=== PATIENT | female | born 1985 | race Caucasian/White ===

== ENCOUNTER 2016-09-14 18:25 | Emergency (ER) | payer OTHER ==
[~2016-09-14] VITALS: Ht 154.9 cm; Wt 63.5 kg
--- NOTE | 2016-09-14 19:37 | Emergency Room Report ---
History of Present Illness Time Seen by [id number] Presenting Problem in Triage Pt arrived:Wheelchair Presenting Problem:C/O SHARP/STABBING LOWER BACK PAIN. PT STATES PAIN BEGAN SUDDENLY WHILE AT WORK AND "MY BACK WENT OUT". PT STATES SHE DID LIFT A PT A COUPLE DAYS AGO AT WORK WHICH CAUSED PAIN AFTERWARD BUT PAIN WAS RELIEVED. PT STATES HAS HX OF PROTRUDING DISC IN HER BACK PT STATES WHEN SHE BEARS WAIT PAIN RADIATES DOWN HER R LEG. Onset of symptoms date/time:09/14/1607/21/1730 or onset unknown for: Treatment Prior to Arrival: CONSULTING IT ARCHITECT Provided by: Sepsis Risk Assessment: Temp: 98.1 B/P: 136/89 MAP: 104 Pulse: 106 Resp: 18 Recent fever? N Clinical Suspician of Infection? N Mental Status: 1 - Regular (Normal Baseline) Sepsis Risk:Low Sepsis Risk Have you (or family members/close friends) recently traveled outside the [place]? N If Yes, where/when: Have you had exposure to infectious disease within the past month? N TB? Other? Specify: Comment The patient says that she has had a slightly sore lower back for a couple of days. She did some lifting at work today and then afterwards developed severe pain in her RIGHT buttock area that goes down her RIGHT leg when she stands and bears weight. She has some tingling or numbness in her RIGHT buttock or hip area when she stands, but no other numbness or weakness. No groin numbness. No loss of bowel or bladder control. No numbness down the leg or in the foot. She does have a prior history of a bulging disc when she was 19 years old. She was treated with physical therapy. No surgery or epidural injections. He had just returned to work last week from a section after having been off work for a couple of months. ALLERGIES Coded Allergies: No Known Allergies (09/14/16) History Medical History General CAD? No Angina: No NV: No Hypertension? No Hyperlipidemia? No CHF? No DVT? No PE? No COPD? No Asthma? No Anemia? No GERD? No Gastric ulcers? No GI Bleed? No Hernia? No Thyroid Problems? No Hypothyroidism? No CVA? No Seizures? No Diabetes? No Renal Insuffiency? No End Stage Renal Disease? No UTI? No Stones? No GB Disease: No Nephritic Syndrome? No Asplenia? No Hepatitis? No Sickle Cell Disease? No Arthritis? No Migraines? No Cataracts? No Glaucoma? No MRSA? No HIV? No TB? No Anxiety? No Depression? No Cancer? No More? No Immunization Hx DT/Tetanus Unknown Surgical Hx Previous Surgery?Y HYSTERECTOMY X3 TONSILS [employer] Hx LMP 2 Months Ago Social History Smoking Hx Smoker: Never Smoker Tobacco: No Alcohol Alcohol: No Review of Systems All Other Systems Reviewed and Negative Constitutional denies fever Musculoskeletal back pain Psychiatric/Neurological tingling, denies weakness Physical Exam Vital Signs Vital Signs Date Time Temp Pulse Resp B/P Pulse O2 O2 Flow FiO2 Ox Delivery Rate 09/14 2010 18 09/14 2009 96 16 142/83 97 09/14 1840 18 09/14 1827 98.1 106 18 136/89 100 - WBC >12,000 or <4,000 or 10% bands? 2 or more SIRS Criteria Met? B/P:136/89 MAP:104 Creatinine >2.0? UA output<0.5ml/kg/hr for 2 hrs? Platelet count >100,000? Lactate >2.0mmol/1? INR >1.2 or PTT > than 60 sec? Evidence of Organ Dysfunction? Provider documented clinical suspician of infection? N Sepsis Criteria Count: 1 Sepsis Risk: Low Sepsis Risk General Appearance normal appearance Respiratory Status No: respiratory distress. Cardiovascular regular rate/rhythm, normal peripheral pulses Back tenderness of RIGHT sacroiliac joint and buttock area including sciatic notch. Increased pain in the RIGHT lower back with movement of the lower extremities, particularly the LEFT. Strength 5 Lower Ext (L), 5 Lower Ext (R) Neurologic alert, no motor/sensory deficits Reflexes Comment 2+ knee jerk and ankle jerk bilaterally symmetric. Medical Decision Making LABS/Meds/Orders Pt receiving controlled substance in ED? Yes Rolo was queried for this patient? Yes Reference #: [id number] Comment 1 rx. percocet on 07/22/16 Results/Orders Current Medication Orders Sig/[place] Start time Last Medication Dose Route Stop Time Status Admin Oxycodone/ 1 EACH ONCE ONE 09/14 2014 AC 09/14 Acetaminophen PO 09/14 Prednisone 40 MG ONCE ONE 09/14 2014 AC 09/14 PO 09/14 Prednisone 0 .STK-MED ONE 09/14 2010 DC .ROUTE Oxycodone/ 0 .STK-MED ONE 09/14 2009 DC Acetaminophen PO Ketorolac 60 MG ONCE ONE 09/14 1845 DC 09/14 Tromethamine IM 09/14 1846 1840 Ketorolac 0 .STK-MED ONE 09/14 1838 DC Tromethamine .ROUTE Orders Procedure Date/time Status LUMBAR SPINE 5 VIEWS 09/14 1836 Active XRAY/CT/US XRAY/CT/US XRAY L-spine Comment X-ray interpreted by Suman Samuel M.D.: Degenerative changes with degenerative disc disease at L5-S1 with spurs Departure Departure Disposition DC Home or Self Care(routine) Clinical Impression Primary Impression: Lumbar disc disease with radiculopathy Condition STABLE Patient Instructions DI for Lumbar Radiculopathy Additional Instructions Off work 09/15/16 and 09/16/16. Additional instructions for BACK PAIN: See your physician as soon as possible for further evaluation. Return immediately if back pain becomes intolerable, or if fever, numbness or weakness of your legs, loss of control of your bowels or bladder. Prescriptions Current Visit Scripts OXYCODONE HCL/ACETAMINOPHEN (Percocet 5-325 MG Tablet) 1 TAB PO Q6HP PRN pain #12 TAB Prednisone (Prednisone 10MG) 10 MG PO DAILY #27 TAB 6 po on days 1-2, then decrease dose by 1 pill per day until gone ED Critical Care Critical Care No at 2014
[2016-09-14] MEDS ORDERED: PERCOCET1 TAB PO (20:09)
[2016-09-14] MEDS ORDERED: PREDNISONE 10MG10 MG PO (20:09)
[2016-09-14 20:18] VITALS: BP 129/76
--- NOTE | 2016-09-15 05:12 | RADIOLOGY REPORT PS360 ---
LUMBAR SPINE 5 VIEWS HISTORY: Severe right-sided low back pain radiating down in the right lower extremity LOWER BACK PAIN COMPARISON: None FINDINGS: Normal alignment. Severe degenerative disc disease is present at L5-S1 with endplate osteophytes. No fracture or dislocation. No lytic or blastic change. Patient is tilted to the right which could be related to positioning or muscle spasm. Multiple small metallic densities are present over the lower pelvic region. IMPRESSION: 1. Degenerative disc disease at L5-S1. 2. Patient tilted to the right which could be related to positioning or muscle spasm
== END 2016-09-14 20:18 | disposition home or self-care (01) ==
LOC: ER 18:25
DX: M51.16 Intervertebral disc disorders with radiculopathy, lumbar region (principal)